=== PATIENT | male | born 1980 | race Caucasian/White ===

== ENCOUNTER 2023-05-28 19:32 | Outpatient (REF) | payer OTHER, SELFPAY ==
--- NOTE | ~2023-05-28 | MR_ITS ---
EXAMINATION: MR CERVICAL SPINE WITHOUT CONTRAST CLINICAL INFORMATION: Radiculopathy, sided numbness COMPARISON: None TECHNIQUE: MRI of the cervical spine was obtained using routine sequences without contrast. FINDINGS: No specific straightening of the normal cervical lordosis. Trace anterolisthesis of C2-C3. Cervical vertebral body heights are maintained. 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 The cervical spinal cord is normal in signal. C2-C3: No significant spinal canal or neural foraminal stenosis. C3-C4: No significant spinal canal stenosis. Uncovertebral spurring with mild neural foraminal narrowing. C4-C5: Trace disc osteophyte complex indents the ventral thecal sac without significant spinal canal stenosis. Uncovertebral and facet arthropathy without significant neural foraminal narrowing. C5-C6: Disc osteophyte complex indents the ventral thecal sac without significant spinal canal stenosis. Uncovertebral and facet arthropathy. The neural foramen are not significantly narrowed. C6-C7: Shallow disc osteophyte complex without significant spinal canal or neural foraminal stenosis. C7-T1: No significant spinal canal or neural foraminal stenosis. Partially visualized paranasal sinus polypoid mucosal thickening. MR/MR cervical spine wo con IMPRESSION: Mild multilevel degenerative changes of the cervical spine without significant spinal canal or neural foraminal stenosis.
--- NOTE | ~2023-05-28 | MR_ITS ---
EXAMINATION: MR BRAIN WITHOUT CONTRAST CLINICAL INFORMATION: TIA, tremors, migraines, left-sided numbness COMPARISON: None available. TECHNIQUE: MRI of the brain was obtained using routine sequences without contrast. FINDINGS: There is no reduced diffusion to suggest acute infarct. Susceptibility weighted sequence is within normal limits. No mass effect, extra-axial collection, midline shift, or other herniation. Scattered predominantly subcortical T2/FLAIR hyperintense foci are nonspecific. The ventricles and sulci are normal in size and configuration. Intracranial flow voids are preserved. Pansinus moderate polypoid mucosal thickening. The mastoid air cells are well-aerated. No focal expansile/destructive osseous lesion. MR/MR head/brain wo con IMPRESSION: No acute infarction or mass effect. Scattered predominantly subcortical T2/FLAIR hyperintense foci are nonspecific but may represent early chronic microvascular ischemic change. Finding is mildly greater than expected for the patient's age and correlation for underlying vascular risk factors is recommended.
== END 2023-05-28 19:33 | disposition home or self-care (01) ==
LOC: HO.MRI 19:32
PROVIDERS: Visit Provider Psychiatry & Neurology Neurology
DX: M54.12 Radiculopathy, cervical region (principal); G45.9 Transient cerebral ischemic attack, unspecified
CPT/HCPCS: 70551; 72141